=== PATIENT | female | born 2000 | race Asian ===

== ENCOUNTER 2022-10-21 04:20 | Emergency (ER) | payer OTHER ==
[~2022-10-21] VITALS: Ht 167.6 cm; Wt 54.4 kg
[2022-10-21 04:38] VITALS: BP 120/81; PULSE 93; RESP 17; TEMP 97.8; O2SAT 91
--- NOTE | 2022-10-21 04:38 | NUR ---
TO BED AMBULATORY
--- NOTE | 2022-10-21 04:56 | NUR ---
PATIENT LEFT WITHOUT BEING SEEN BY DR. ALATORRE. NO FURTHER CARE PROVIDED FOR PATIENT.
== END 2022-10-21 04:56 | disposition left against medical advice (07) ==
LOC: MED 04:20
DX: R05.9 Cough, unspecified (principal); R06.02 Shortness of breath; Z53.21 Procedure and treatment not carried out due to patient leaving prior to being seen by health care provider
CPT/HCPCS: 99281